=== PATIENT | male | born 1975 | race Caucasian/White ===

== ENCOUNTER 2018-12-17 05:28 | Inpatient (IN) | payer OTHER ==
[2018-12-17] MEDS: CEFAZOLIN 2 GM/50 ML (PMX) 50 ML IVPB (06:43)
[2018-12-17] MEDS: LACTATED RINGER'S 1,000 ML IV* (06:43)
[2018-12-17] MEDS ORDERED: PROPOFOL 20 ML (07:00)
[2018-12-17] MEDS ORDERED: NEOSTIGMINE 3 MG/3 ML SYRINGE ×2 (07:00→09:07)
[2018-12-17] MEDS ORDERED: GLYCOPYRROLATE 0.4 MG INJ ×2 (07:00→09:07)
[2018-12-17] MEDS ORDERED: ROCURONIUM 50 MG INJ ×3 (07:00→09:07)
[2018-12-17] MEDS ORDERED: LIDOCAINE 2% (SDV) 5 ML INJ (07:00)
[2018-12-17] MEDS ORDERED: MIDAZOLAM 1 MG/ML 2 ML INJ (07:00)
[2018-12-17] MEDS ORDERED: MEPERIDINE 100 MG INJ (07:00)
[2018-12-17] MEDS ORDERED: SUCCINYLCHOLINE CHLORIDE 100 MG/5 ML SYG IV (07:00)
[2018-12-17] MEDS ORDERED: hydrALAzine 20 MG INJ (07:59)
[2018-12-17] MEDS: BUPIVACAINE 0.25% (MPF) 30 ML INJ (08:08)
[2018-12-17] MEDS: THROMBIN (BOVINE) 5,000 UNIT VIAL TP (08:09)
[2018-12-17] MEDS: POLYMYXIN/BACITRACIN 1L IRRIG IRR (08:09)
[2018-12-17] MEDS: GELATIN SIZE 100 SPONGE (08:09)
[2018-12-17] MEDS ORDERED: hydrALAzine 20 MG INJ IV (09:00)
[2018-12-17] MEDS ORDERED: LABETALOL HCL 20MG INJ IV (09:00)
[2018-12-17] MEDS ORDERED: FENTAnyl 50 MCG/ML VIAL IV ×3 (09:00)
[2018-12-17] MEDS ORDERED: DIPHENHYDRAMINE 50 MG INJ IV (09:00)
[2018-12-17] MEDS ORDERED: EPHEDrine SULFATE 50 MG/5 ML SYG IV (09:00)
[2018-12-17] MEDS ORDERED: HYDROmorphONE 1 MG/5 ML IV SYRINGE IV (09:00)
[2018-12-17] MEDS ORDERED: MIDAZOLAM 1 MG/ML 2 ML INJ IV (09:00)
[2018-12-17] MEDS ORDERED: OXYCODONE/ACETAMINOPHEN (5/325) TAB PO ×2 (09:00)
[2018-12-17] MEDS ORDERED: ONDANSETRON 4 MG INJ IV (09:00)
[2018-12-17] MEDS ORDERED: MEPERIDINE 25 MG INJ IV (09:00)
[2018-12-17] MEDS ORDERED: METOPROLOL 5 MG INJ (09:22)
[2018-12-17] MEDS ORDERED: LABETALOL HCL 20MG INJ (09:23)
[2018-12-17] MEDS ORDERED: FENTAnyl 50 MCG/ML VIAL (10:18)
[2018-12-17] MEDS: DEXTROSE 5%-0.45% NACL 1,000 ML IV ×2 (11:02→22:15)
[2018-12-17] MEDS: HYDROmorphONE 1 MG/5 ML IV SYRINGE IV ×2 (11:05→11:15)
[2018-12-17] MEDS: METOCLOPRAMIDE 10 MG INJ IV (11:05)
[2018-12-17] MEDS ORDERED: NALOXONE (0.4 MG/ML) INJ IV (11:30)
[2018-12-17] MEDS ORDERED: DIPHENHYDRAMINE 50 MG CAP PO (11:30)
[2018-12-17] MEDS ORDERED: DIAZEPAM 5 MG/ML SYG IM (11:30)
[2018-12-17] MEDS ORDERED: ZOLPIDEM 5 MG TAB PO (11:30)
[2018-12-17] MEDS ORDERED: DIAZEPAM 5 MG TAB PO (11:30)
[2018-12-17] MEDS ORDERED: PROCHLORPERAZINE 10 MG TAB PO (11:30)
[2018-12-17] MEDS ORDERED: AL HYDROX/MG HYDROX/SIMETH 30 ML CUP PO (11:30)
[2018-12-17] MEDS ORDERED: NACL 0.9% 3 ML SYG IV (11:30)
[2018-12-17] MEDS ORDERED: ACETAMINOPHEN 325 MG TAB PO (11:30)
[2018-12-17] MEDS ORDERED: HYDROCODONE/APAP (5/325) TAB PO (11:30)
[2018-12-17] MEDS ORDERED: BETHANECHOL 25 MG TAB PO (11:30)
[2018-12-17] MEDS ORDERED: HYDROmorphONE 0.2 MG/ML PCA (11:37)
[2018-12-17] MEDS: HYDROmorphONE 0.2 MG/ML PCA IV ×2 (11:45→18:55)
[2018-12-17] MEDS: CEFAZOLIN 1 GM/50 ML (PMX) 50 ML IVPB ×3 (11:47→23:39)
[2018-12-17] MEDS: RANITIDINE 150 MG TAB PO (21:00)
[2018-12-17] MEDS: CEPASTAT LOZENGE MT ×2 (22:14→23:39)
[2018-12-18] MEDS: HYDROmorphONE 0.2 MG/ML PCA IV (02:57)
[2018-12-18] MEDS: ONDANSETRON 4 MG INJ IV (03:02)
[2018-12-18] MEDS: CEPASTAT LOZENGE MT ×2 (03:09→06:04)
[2018-12-18 05:34] LABS: HEMATOCRIT 43.5 % (42.0-52.0); HEMOGLOBIN 14.7 g/dl (14.0-18.0)
[2018-12-18] MEDS: LACTATED RINGER'S 1,000 ML IV* (06:00)
[2018-12-18] MEDS: CEFAZOLIN 1 GM/50 ML (PMX) 50 ML IVPB (06:03)
[2018-12-18 06:07] LABS: ANION GAP 5 (5-13); BLOOD UREA NITROGEN 6 mg/dl (7-20); CALCIUM 8.5 mg/dl (8.4-10.2); CARBON DIOXIDE 28 mmol/L (21-31); CHLORIDE 106 mmol/L (97-110); CREATININE 0.68 mg/dl (0.61-1.24); Estimated GFR > 60 mL/min (>60); GLUCOSE 129 mg/dl (70-220); POTASSIUM 3.8 mmol/L (3.5-5.1); SODIUM 139 mmol/L (135-144)
[2018-12-18] MEDS: DEXTROSE 5%-0.45% NACL 1,000 ML IV (07:02)
[2018-12-18] MEDS: HYDROCODONE/APAP (5/325) TAB PO ×2 (07:54→12:07)
[2018-12-18] MEDS: BETHANECHOL 25 MG TAB PO (07:54)
[2018-12-18] MEDS: FERROUS SULFATE (EC) 325 MG TAB PO ×2 (09:00→13:00)
[2018-12-18] MEDS: RANITIDINE 150 MG TAB PO (09:00)
[2018-12-18] MEDS: DOCUSATE SODIUM 100 MG CAP PO (09:00)
[2018-12-18] MEDS: ASCORBIC ACID 500 MG TAB PO (09:00)
[2018-12-18] MEDS: INFLUENZA VIRUS VACCINE 0.5 ML (DISPENSING) IM* (09:00)
[2018-12-18 10:35] LABS: ADD UMIC NO; UR ASCORBIC ACID NEGATIVE (NEGATIVE); UR BILIRUBIN (Dip) NEGATIVE (NEGATIVE); UR BLOOD (Dip) NEGATIVE (NEGATIVE); UR CLARITY CLEAR (CLEAR); UR COLOR YELLOW (YELLOW); UR GLUCOSE (Dip) NEGATIVE (NEGATIVE); UR KETONES (Dip) NEGATIVE (NEGATIVE); UR LEUKOCYTE ESTERASE (Dip) NEGATIVE Leu/ul (NEGATIVE); UR NITRITE (Dip) NEGATIVE (NEGATIVE); UR SPECIFIC GRAVITY (Dip) 1.018 (1.003-1.030); UR TOTAL PROTEIN (Dip) NEGATIVE (NEGATIVE); UR UROBILINOGEN (Dip) NEGATIVE (NEGATIVE)
[2018-12-18] MEDS: TRIMETHOBENZAMIDE 100 MG/ML VIAL IM (14:21)
== END 2018-12-18 14:55 | disposition home or self-care (01) | DRG 473 ==
LOC: SDS 05:28 → REC 11:06 → MS1 12:22
PROVIDERS: Orthopaedic Surgery
PROC: 0RG20A0 Fusion of 2 or more Cervical Vertebral Joints with Interbody Fusion Device, Anterior Approach, Anterior Column, Open Approach (ICD-10-PCS; principal; 2018-12-17 07:00)
PROC: 0RB30ZZ Excision of Cervical Vertebral Disc, Open Approach (ICD-10-PCS; 2018-12-17 07:00)
PROC: 0QB30ZZ Excision of Left Pelvic Bone, Open Approach (ICD-10-PCS; 2018-12-17 07:00)
DX: M50.322 Other cervical disc degeneration at C5-C6 level (principal); M48.02 Spinal stenosis, cervical region
CPT/HCPCS: 72020; 72040; 80048; 81003; 82652; 85014; 85018; 86850; 86900; 86901; 86920; 87086; 88304; 90686; 97116; 97161; 97530